=== PATIENT | male | born 1975 | race Caucasian/White ===

== ENCOUNTER 2023-10-30 11:56 | Emergency (ER) | payer OTHER, SELFPAY ==
[2023-10-30 11:59] VITALS: BMI 25.8
[2023-10-30 12:03] VITALS: BP 123/89
[2023-10-30 12:25] LABS: % Basophils 0.4 % (0-2); % Eosinophils 1.1 % (0-6); % Immature Granulocytes 0.8 % (0-0.5); % Lymphocytes 27.5 % (20.5-51.1); % Neutrophils 62.2 % (42.2-75.2); Absolute Eosinophils 0.1 10^3/uL (0-0.7); Absolute Immature Granulocytes 0.1 10^3/uL (0-0.05); Absolute Lymphocytes 2.1 10^3/uL (1.2-3.4); Absolute Monocytes 0.6 10^3/uL (0.1-0.6); Absolute Neutrophils 4.7 10^3/uL (1.4-6.5); Hemoglobin 15.8 g/dL (13.0-18.0); Mean Corp Hgb Conc. 35.9 g/dL (33.0-37.0); Mean Corpuscular Hgb 31.5 pg (27.0-31.0); Mean Corpuscular Volume 87.8 fL (80.0-94.0); Mean Platelet Volume 9.5 fL (7.4-10.4); Nucleated Red Blood Cells % 0 % (-); Platelet Count 311 10^3/uL (130-400); Red Blood Cell Count 5.01 10^6/uL (4.70-6.10); Red Cell Dist. Width 12.3 % (11.5-14.5); White Blood Cell Count 7.6 10^3/uL (4.8-10.8)
[2023-10-30 12:43] LABS: ALT (SGPT) 145 U/L (0-50); AST (SGOT) 71 U/L (17-59); Albumin 4.9 g/dl (3.5-5.0); Alkaline Phosphatase 68 U/L (38-126); Blood Urea Nitrogen 14 mg/dl (9-20); Calcium 10.3 mg/dl (8.4-10.2); Carbon Dioxide 21 mmol/L (22-30); Chloride 102 mmol/L (98-107); Estimated Creatinine Clearance 107 ml/min; Glucose 101 mg/dl (70-99); Sodium 140 mmol/L (135-145); Total Bilirubin 0.8 mg/dl (0.2-1.3); Total Protein 7.4 g/dl (6.3-8.2); eGFR > 60.00
[2023-10-30 12:53] LABS: Troponin I < 0.012 ng/ml
[2023-10-30 13:00] VITALS: BP 135/100
[2023-10-30 13:14] VITALS: BP 138/105
[2023-10-30 14:11] VITALS: BP 147/103
--- NOTE | 2023-10-30 14:38 | CON.CAR ---
Addendum entered and electronically signed by Olvin Martinez MD 10/30/23 17:20:
48-year-old man with hypermobile lipidemia, untreated sleep apnea, anxiety, GERD and alcohol use. Seen in the emergency department today after episode of tachycardia at work associated with lightheadedness and near syncope. This morning he had
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 Initial weakness that resolved and recurred, not better sitting but better lying down, nurse said pulse was 'elevated' total duration of
symptoms was less than 10 minutes. As a youth he had similar symptoms and a cardiac evaluation.
PMH: Hyperlipidemia, untreated sleep apnea, anxiety, GERD
PSH: Fistula repair
Tobacco: Rare occasional cigarette, drinks vodka and cranberry, 4 or 5 drinks, 18-year-old child
FH: Noncontributory
Meds reviewed
155/98, pulse 67, respiratory rate 18 chest x-ray is no active disease, ECG is sinus rhythm with PVCs, left axis deviation
Normal CBC, BUN and creatinine 14 and 0.9, AST and ALT are 71 and 145, troponin is undetectable
Impression:
Tachycardia with near syncope, possibly prodrome to vagal syncope versus PAF
Probable hypertension
Hypercholesterolemia
Alcohol use
Untreated sleep apnea
Anxiety
GERD
Plan:
He seems stable from a cardiac standpoint and overall his negative troponin and EKG are reassuring.
Okay for discharge from the emergency department. We will arrange for outpatient wearable monitor and an echocardiogram.
Importance of reduction in alcohol intake stressed at length. I think this is likely the underlying issue. Also stressed were the importance of treatment for sleep apnea, and weight loss.
He will likely need antihypertensive therapy but I did not start any medications at this time.
We will arrange for cardiac follow-up.
Original Note:
Consultation
Consultation Request
Date/Time Consultation Requested: 10/30/2023
Date/Time Consultation Performed: 10/30/2023 at 1415
Requesting Provider: Dr. Alvarez
Performing Provider: Debbie Chen PA-C for Dr. MASHA Martinez
Reason for Consultation: Palpitations, near syncope
Medical History
-
History of Present Illness:
HPI: Ramses is a 48 year old male with PMH of hyperlipidemia, GRACIELA, anxiety, and GERD. He presented to [facility] for evaluation after he had episode of palpitations and lightheadedness this AM while at work. He states he was standing when suddenly he felt
his heart start racing and became dizzy and lightheaded with associated tinnitus. He felt weak during this episode, however episode was short lived, only 15-20 seconds in duration before resolving. He then started walking and again had another
episode of heart racing, lightheadedness, and weakness. 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 Given recurrent symptoms, he came to ER for evaluation. In ER, workup has been unremarkable thus far.
EKG SR with PVCs, no arrhythmias or evidence of heart block noted on telemetry. Troponin negative x 1. He has been feeling well here and denies any recurrent symptoms while admitted. He notes no recent history of palpitations, syncope, or near
syncope, but does note that when he was a teenager, he was evaluated by cardiology due to similar symptoms. Reports he had an echo and monitor at that time which were normal.
PMH:
HLD
GRACIELA, noncompliant with CPAP
Anxiety
GERD
Past Medical History
Past Medical History: Other (In HPI)
Past Surgical History: Other (fistula repair 2020)
Social History
Tobacco: Former Smoker (Still smokes an occasional cigarrette rarely, quit smoking regularly years ago)
Alcohol: Occasional (5-6 drinks (beers) 4-5 days per week)
Drug: None
Personal:
Living: With Family
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
Family History
Family History: CAD (Father had NE)
Allergies / Home Medications
Allergy/AdvReac Type Severity Reaction Status Date / Time
No Known Allergies Allergy Verified 04/23/22 19:20
�Medication �Instructions �Recorded �Confirmed �Type
esomeprazole magnesium 40 mg 40 mg PO DAILY 01/03/11 06/14/20 History
capsule,delayed release (Nexium)
clonazepam 1 mg tablet 2 mg PO PRN PRN as directed 03/20/20 06/14/20 History
rosuvastatin 20 mg tablet 20 mg PO QPM 03/20/20 06/14/20 History
escitalopram oxalate 10 mg tablet 10 mg PO DAILY 06/12/20 06/14/20 History
Review of Systems
-
History Source: Patient
All other systems: Negative unless noted
Physical Exam
Vital Signs
Temp Pulse Resp BP Pulse Ox
98 F 68 19 147/103 94
10/30/23 11:59 10/30/23 14:12 10/30/23 14:12 10/30/23 14:11 10/30/23 14:12
Lab Results
10/30/23 12:09
10/30/23 12:08
Troponin I < 0.012 ng/ml 10/30/23 12:09
Physical Exam
General: Well Developed, Well Nourished and No Apparent Distress
HEENT: Normocephalic, Anicteric and Moist Mucous Membranes
Respiratory: Clear and Non Labored Respirations
Cardiac: S1/S2 and Regular Rhythm
Musculoskeletal: No Clubbing, No Cyanosis and No Edema
Skin: Warm and Dry
Neuro: AO x 3 and Nonfocal/Grossly Intact
Psych: Calm
Impression / Plan
-
PCP: Dr. Fernandez
Bus Starter: None prior to admission
Impression:
Presented with palpitations
Near syncope
PVCs
HLD
GRACIELA, noncompliant with CPAP
Anxiety
GERD
Plan:
-Presented for evaluation after multiple episodes of near syncope and palpitations today while at work
-EKG on arrival sinus rhythm with PVCs. Heart rate stable on review of telemetry. No arrhythmias noted.
-Will arrange for a 7-day CAM monitor through the cardiology office after discharge from ER to continue monitoring.
-Troponin negative x 1. Lab work otherwise unremarkable with normal renal function and electrolytes.
-Blood pressure overall stable, borderline elevated today in ER. Does not have history of hypertension. Recommend continue monitoring at home
-Pending results of monitor and blood pressure trends, may consider starting medication at follow-up
-He has known GRACIELA and is noncompliant with CPAP. Discussed importance of compliance and appropriate management of sleep apnea. He will follow-up with pulmonology to discuss options
-Discussed ETOH intake and recommended he cut back significantly/abstain from alcohol. Also recommended avoiding energy drinks and limiting caffeine intake.
-Check echo as outpatient. This has been arranged. Currently scheduled 11/17/2023 at 1 PM.
-He notes history of similar symptoms years ago as a teenager and had echo and monitor at the time that were unremarkable.
-Continue rosuvastatin.
-Cardiology follow-up arranged.
HPI: Ramses is a 48 year old male with PMH of hyperlipidemia, GRACIELA, anxiety, and GERD. He presented to [facility] for evaluation after he had episode of palpitations and lightheadedness this AM while at work. He states he was standing when suddenly he felt
his heart start racing and became dizzy and lightheaded with associated tinnitus. He felt weak during this episode, however episode was short lived, only 15-20 seconds in duration before resolving. He then started walking and again had another
episode of heart racing, lightheadedness, and weakness. 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 Given recurrent symptoms, he came to ER for evaluation. In ER, workup has been unremarkable thus far.
EKG SR with PVCs, no arrhythmias or evidence of heart block noted on telemetry. Troponin negative x 1. He has been feeling well here and denies any recurrent symptoms while admitted. He notes no recent history of palpitations, syncope, or near
syncope, but does note that when he was a teenager, he was evaluated by cardiology due to similar symptoms. Reports he had an echo and monitor at that time which were normal.
Data Reviewed
-
EKG: Tracing Personally Visualized and interpreted
Labs: Labs Reviewed by me
Old Records: Reviewed
[2023-10-30 15:00] VITALS: BP 142/105
--- NOTE | 2023-10-30 16:27 | ED.GENMED ---
History of Present Illness
General
Chief Complaint: Chest Pain
Source: patient and spouse
Exam Limitations: none
Time Seen by Provider: 10/30/23 12:39
History of Present Illness
History of Present Illness:
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 He states he was lightheaded. He had ringing in his ears. He also had palpitations. He was concerned he was
going to pass out and fall so he walked to the office to sit down and when he sat down a second episode occurred. Symptoms have since resolved. Symptoms started around 11 AM he denies any associated pain. No back pain or chest pain. No shortness
of breath. States he did have a Holter monitor when he was young but since then has been otherwise okay. No recent dyspnea on exertion. No recent chest pain with exertion. No family history of sudden cardiac . No family history of early
coronary disease.
Past History
Past History
ED Past Medical History: GERD and Hypercholesterolemia; Negative Asthma, CAD, Cancer or IDDM
ED Past Surgical History: Orthopedic and Urological; Negative Cardiac
Social History
Tobacco: Non-smoker
Alcohol: Occasional
Drug: None
Personal:
Living: with family
Employment: Employed
Family History
Family History: Hypertension
Phy Exam
Physical Exam
Physical Exam:
CONSTITUTIONAL Patient alert and oriented to person, place and time. Well-appearing. Vital signs reviewed.
HEAD atraumatic, normocephalic.
EYES eyelids normal to inspection, Pupils equally round and reactive to light, Extraocular muscles intact, Conjunctiva normal, Sclera normal.
NECK normal range of motion, Trachea midline, no jugular venous distention.
RESPIRATORY CHEST No respiratory distress noted, Chest expansion equal, Bilateral breath sounds clear.
CARDIOVASCULAR regular rate and rhythm, Heart sounds normal.
ABDOMEN abdomen nontender, Bowel sounds normal. No distention.
BACK normal inspection, no obvious deformities
UPPER EXTREMITY range of motion normal, Motor strength normal, no cyanosis, no edema.
LOWER EXTREMITY range of motion normal, Motor strength normal, no cyanosis, no edema.
NEURO Speech normal, No focal motor deficits, Hector coma scale 15, Memory normal, Cranial Nerves intact to screening exam.
SKIN skin warm, dry, and normal in color.
PSYCHIATRIC patient oriented to person place and time, Normal affect.
Scores
Heart Score for Chest Pain Patients
STEMI patient?: Not applicable
Course
Orders/Labs/Results
Orders:
Orders
10/30/23 11:58
Electrocardiogram (*1) Urgent
Reason for Study: Chest Pain
EKG- Treatment ONCE
10/30/23 12:08
Comprehensive Metabolic Panel Urgent
10/30/23 12:09
Complete Blood Count/With Diff Urgent
Troponin I Urgent
10/30/23 14:52
CR Chest - 2 Views Urgent
Comment:
Reason For Exam: palpitations
Abnormal Lab Results
10/30/23 10/30/23
12:08 12:09
MCH 31.5 H pg
(27.0-31.0)
Abs Immat Gran (auto) 0.1 H 10^3/uL
(0-0.05)
Immature Gran % 0.8 H %
(0-0.5)
Carbon Dioxide 21 L mmol/L
(22-30)
Glucose 101 H mg/dl
(70-99)
Calcium 10.3 H mg/dl
(8.4-10.2)
AST 71 H U/L
(17-59)
ALT 145 H U/L
(0-50)
10/30/23 12:09
10/30/23 12:08
Vital Signs
Initial and Last Documented VS:
Initial Vital Signs
Temp Pulse Resp Pulse Ox
98 F 73 14 96
10/30/23 11:59 10/30/23 11:59 10/30/23 11:59 10/30/23 11:59
Last Documented Vital Signs
Temp Pulse Resp BP Pulse Ox
98 F 59 16 142/105 97
10/30/23 11:59 10/30/23 15:15 10/30/23 15:15 10/30/23 15:00 10/30/23 15:15
MDM/Problems Addressed
MDM/Problems Addressed:
Palpitations, near-syncope
*Radiology
Radiology exam reviewed: all reviewed NAD by ED Provider
*Pulse Oximetry
Patient hypoxic: no
*EKG
Interpreted by ED Provider?: Yes
Interpretation: abnormal
Rate: normal
Rhythm: sinus and PVC's
[place]: normal axis
Ischemia: no ischemia
*Chairman Interpretation
Rate: normal
Interpretation: normal
Rhythm: sinus
*Critical Care Note
Total Time (30-74mins, 75-104mins- exclusive of procedures): Not Applicable
Data Reviewed
Source: patient and spouse
Further Testing Considered But Not Given:
Consider D-dimer but symptoms have resolved and no PE risk
Patient Management
Discussion with other providers: Advertising Representative (Case discussed with cardiology)
Escalation/DeEscalation of care consider admission/obs:
Patient seen and examined by cardiology. Case was discussed with cardiology. Patient cleared for discharge for follow-up and a Holter monitor will be placed today upon discharge. Patient counseled on reasons for return
ED Attending Note
-
Portions of this chart may have been created with voice recognition software.� Occasional wrong word or��sound alike� substitutions may have occurred due to the inherent limitations of voice recognition software.
Discharge Plan
Departure
Patient Disposition: Home (Routine Discharge)
Date of Disposition: 10/30/23
Time of Disposition: 16:27
Patient with high blood pressure during this ER visit?: Yes
Discharge Problem:
Palpitations, Near syncope
Instructions: Near Fainting (DC), Palpitations
Prescriptions:
No Action
esomeprazole magnesium [Nexium] 40 MG capsule,delayed release(DR/EC)
40 mg PO DAILY
clonazepam 1 MG tablet
2 mg PO PRN PRN (Reason: as directed)
rosuvastatin 20 MG tablet
20 mg PO QPM
escitalopram oxalate 10 MG tablet
10 mg PO DAILY
Referrals:
Saud Fernandez MD [Family Provider] -
Debbie Chen PA-C [Specified Professional Personl] - 11/20/23 7:40 am (You have been arranged [facility]. Please call with questions. )
Activity Restrictions/Additional Instructions:
You have been scheduled for an echo at [facility] 11/17/2023 at 1:00 PM. Please call the cardiology office with questions.
Please go directly to the cardiology office to get a 7-day monitor. Please go to the [facility] [facility]. Return immediately for chest pain, shortness of breath, palpitations, passing out episode or any other concerns.
Interventions
Interventions:
*Risk Screen - Suicide Last Done: 10/30/23 11:59
*General Assessment Last Done: 10/30/23 11:59
*Neglect/Abuse Screening Last Done: 10/30/23 11:59
ED- Fall Risk Assessment Last Done: 10/30/23 12:06
*ED COVID-19 Vaccine History Last Done: 10/30/23 11:59
ED- Cardiac Assessment Last Done: 10/30/23 12:06
Discharge Date and Time
Print Language: [place] CITIZEN
[2023-10-30 16:52] VITALS: BP 155/98
== END 2023-10-30 16:56 | disposition home or self-care (01) ==
LOC: EMR 11:56
PROVIDERS: Emergency Medicine; EMERGENCY PHYSICIAN Emergency Medicine; FAMILY PHYSICIAN Internal Medicine
DX: R55 Syncope and collapse (principal); R00.2 Palpitations; R03.0 Elevated blood-pressure reading, without diagnosis of hypertension; Z87.891 Personal history of nicotine dependence
CPT/HCPCS: 99285; 71046; 80053; 84484; 85025; 93005

== ENCOUNTER → 2023-11-17 12:49 | Outpatient (REF) | payer OTHER, SELFPAY | LOC: RCS 12:49 | PROVIDERS: ATTENDING PHYSICIAN Internal Medicine Cardiovascular Disease; FAMILY PHYSICIAN Internal Medicine | DX: R00.2 Palpitations (principal); R55 Syncope and collapse; I49.5 Sick sinus syndrome; R03.0 Elevated blood-pressure reading, without diagnosis of hypertension | CPT/HCPCS: 93306 ==

== ENCOUNTER → 2024-01-27 12:00 | Outpatient (REF) | payer OTHER, SELFPAY | LOC: DHSLP 12:00 | PROVIDERS: ATTENDING PHYSICIAN Internal Medicine Critical Care Medicine; FAMILY PHYSICIAN Internal Medicine | DX: G47.33 Obstructive sleep apnea (adult) (pediatric) (principal) | CPT/HCPCS: 95811 ==

== ENCOUNTER 2024-06-23 14:14 | Emergency (ER) | payer OTHER, SELFPAY ==
[2024-06-23 14:15] VITALS: BP 150/99
[2024-06-23 15:24] VITALS: BMI 30.8
--- NOTE | 2024-06-23 17:36 | ED.MUSCINJ ---
HPI-Injury
General
Chief Complaint: Musculo-Skeletal Complaint
Source: patient
Exam Limitations: none
Time Seen by Provider: 06/23/24 16:53
Nursing documentation reviewed up to this point in time: agreed with
History of Present Illness-Injury
Is this injury a work related problem?: Yes
Is pt an associate of [facility]?: No
Initial Injury comments:
Patient states he was attempting to run andhis knee gave out. COmplains of pain to right knee. Incident occured just [employer]
Past History
Past History
ED Past Medical History: GERD and Hypercholesterolemia; Negative Asthma, CAD, Cancer or IDDM
ED Past Surgical History: Orthopedic and Urological; Negative Cardiac
Social History
Tobacco: Non-smoker
Alcohol: Occasional
Drug: None
Personal:
Living: with family
Employment: Employed
Family History
Family History: Hypertension
Review of Systems
Review of Systems
Allergies reviewed?: Yes
All Other Systems: ROS reviewed and negative except as documented in HPI and ROS
Constitutional: Reports no symptoms
Musculoskeletal: Reports joint pain (pain to right knee)
Skin: Reports no symptoms
Neurological: Reports no symptoms
Psychiatric: Reports no symptoms
Musculoskeletal Injury Exam
Musculoskeletal Injury Exam
Right Knee:
Pain with Movement?: Moderate
Tender to palpation?: Moderate
Soft tissue swelling?: None
External deformity and angulation?: None
Joint effusion?: None
Contusion?: None
Hematoma-local bleeding into tissue?: None
Strain- Sprain- Tear (Connective tissue injury)?: Moderate
Crepitus with movement?: No
Joint instability?: No
Malalignment/deformity?: No
Range of motion: Limited
Distal skin color and temperature: normal-warm & good color
Capillary Refill: normal
Normal distal neurovascular exam?: Yes
Phy Exam
General Physical Exam
General Presentation: well appearing and no apparent distress
General age: appears stated age
General Skin: warm and dry
General Habitus: normal
General Mental: alert
Musculoskeletal Exam
Musculoskeletal Exam: neuro vasc intact
Skin Exam
Skin Exam: normal color and warm/dry
Psychiatric Exam
Psychiatric Exam: normal mood/affect
Injury Course
Orders/Labs/Results
Orders:
Orders
06/23/24 14:17
Knee, Right 4 or More Views [CR Knee- Right 4 Or More View*] Urgent
Comment:
Reason For Exam: pain
06/23/24 17:02
Knee Immobilizer Right-Treatme ONCE
*Radiology
Radiology exam reviewed: radiology read reviewed
*Pulse Oximetry
Patient hypoxic: no
*Critical Care Note
Total Time (30-74mins, 75-104mins- exclusive of procedures): Not Applicable
ED Attending Note
-
Portions of this chart may have been created with voice recognition software.� Occasional wrong word or��sound alike� substitutions may have occurred due to the inherent limitations of voice recognition software.
Discharge Plan
Departure
Patient Disposition: Home (Routine Discharge)
Date of Disposition: 06/23/24
Time of Disposition: 17:02
Patient with high blood pressure during this ER visit?: No
Condition: Good
Covid-19: Not Applicable
Discharge Problem:
Knee sprain
Instructions: Knee Immobilizer (DC), Knee Sprain (DC), Ibuprofen, Using Cold for Pain
Prescriptions:
No Action
esomeprazole magnesium [Nexium] 40 MG capsule,delayed release(DR/EC)
40 mg PO DAILY
clonazepam 1 MG tablet
2 mg PO PRN PRN (Reason: as directed)
rosuvastatin 20 MG tablet
20 mg PO QPM
escitalopram oxalate 10 MG tablet
10 mg PO DAILY
Referrals:
Saud Fernandez MD [Family Provider] -
Stand Alone Forms: Return to Work
Activity Restrictions/Additional Instructions:
Follow up with your workman's comp provider in the AM
Interventions
Interventions:
*Risk Screen - Suicide Last Done: 06/23/24 14:15
*General Assessment Last Done: 06/23/24 14:15
*Neglect/Abuse Screening Last Done: 06/23/24 15:25
*ED- Fall Risk Assessment Last Done: 06/23/24 15:25
*ED COVID-19 Vaccine History Last Done: 06/23/24 15:25
ED-Musculoskeletal Assessment Last Done: 06/23/24 15:25
Discharge Date and Time
Print Language: BELIZE[place]
== END 2024-06-23 17:46 | disposition home or self-care (01) ==
LOC: EMR 14:14
PROVIDERS: EMERGENCY PHYSICIAN Student in an Organized Health Care Education/Training Program; FAMILY PHYSICIAN Internal Medicine
DX: S83.91XA Sprain of unspecified site of right knee, initial encounter (principal); X58.XXXA Exposure to other specified factors, initial encounter; K21.9 Gastro-esophageal reflux disease without esophagitis; E78.00 Pure hypercholesterolemia, unspecified; I25.10 Atherosclerotic heart disease of native coronary artery without angina pectoris; Z82.49 Family history of ischemic heart disease and other diseases of the circulatory system
CPT/HCPCS: 99283; 29505; 73564

== ENCOUNTER → 2024-09-29 06:49 | Outpatient (REF) | payer OTHER, SELFPAY | LOC: RAD 06:49 | PROVIDERS: ATTENDING PHYSICIAN Hospitalist | DX: R79.89 Other specified abnormal findings of blood chemistry (principal) | CPT/HCPCS: 76700 ==